=== PATIENT | male | born 1970 | race Hispanic/Latino ===

== ENCOUNTER → 2025-09-14 | Outpatient (CLI) | payer OTHER ==
--- NOTE | 2025-09-15 00:21 | HMCIMG ---
EXAM: RIGHT HAND RADIOGRAPH, 3 VIEWS CLINICAL INFORMATION: Right hand pain. TECHNIQUE: Posteroanterior, oblique, and lateral views of the right hand were obtained. COMPARISON: None provided. FINDINGS BONES AND JOINTS: No acute fracture or dislocation; joint spaces are preserved without focal osteochondral defect. ALIGNMENT: Anatomic alignment without subluxation. SOFT TISSUES: No focal soft-tissue swelling or soft-tissue gas. FOREIGN BODIES/HARDWARE: No radiopaque foreign body or orthopedic hardware. IMPRESSION * Normal right hand radiographs???no acute osseous abnormality. /Nursery
== END | disposition home or self-care (01) ==
LOC: RAH 10:56
PROVIDERS: ATTEND Family Medicine
DX: M79.641 Pain in right hand (principal)
CPT/HCPCS: 73130